=== PATIENT | female | born 1960 | race Hispanic/Latino ===

== ENCOUNTER → 2025-02-05 | Outpatient (CLI) | payer OTHER ==
--- NOTE | 2025-02-05 17:57 | HMCIMG ---
EXAM: CR right Knee, 2 View. CLINICAL HISTORY: ARTHRITIS, FIBROMYALGIA COMPARISON: None provided. FINDINGS: BONES: No acute fracture or aggressive appearing osseous lesion. JOINTS: The joint spaces show no significant degenerative disease. There is no joint effusion appreciated. SOFT TISSUES: The soft tissues are unremarkable. IMPRESSION: No acute osseous pathology evident. /[place]
== END | disposition home or self-care (01) ==
LOC: RAH 15:33
PROVIDERS: ATTEND Internal Medicine
DX: M17.11 Unilateral primary osteoarthritis, right knee (principal); M79.7 Fibromyalgia
CPT/HCPCS: 73560